=== PATIENT | female | born 1955 | race Caucasian/White ===

== ENCOUNTER 2016-08-19 12:16 | Emergency (ER) | payer OTHER ==
[~2016-08-19 12:16] MED LIST: ACYCLOVIR200 MG PO; ARMOUR THYROID15 MG; KLOR-CON M2020 MEQ PO; LAMICTAL100 MG PO; OMEPRAZOLE10 MG; PANTOPRAZOLE SO40 MG PO; XANAX1 MG; ZOFRAN ODT4 MG PO
--- NOTE | 2016-08-19 15:34 | DIAGNOSTIC IMAGING REPORT ---
PROCEDURE: ABDOMEN/PELVIS WITH CONTRAST CLINICAL INDICATION: ABDOMINAL PAIN, left-sided and low abdominal. TECHNIQUE: 125 ml of Isovue 300 were injected intravenously and axial images were obtained of the abdomen and pelvis with sagittal and coronal reformations. COMPARISON: 05/06/2016 FINDINGS: ABDOMEN: Mild bibasilar posterior atelectasis. Mild to moderate hiatal hernia. Surgical staple line around the gastric cardia. The rest of the stomach appears normal. Normal heart size. Two sub-centimeter hepatic cysts. Normal gallbladder. The adrenal glands, kidneys, pancreas and spleen are normal. The abdominal aorta is normal in its course and caliber. No atherosclerosis. There are no suspicious calcifications, retroperitoneal adenopathy or masses. The upper bowel loops, and mesentery are normal. Mild wall thickening and edema involving the terminal ileum and proximal colon. Diffuse wall edema throughout the decompressed, spasm and transverse colon through the splenic flexure. The descending colon is also decompressed with wall edema and mild diverticulosis. There is moderate diverticulosis in the sigmoid colon. No focal pericolonic inflammation. PELVIS: The appendix and pelvic small bowel loops are normal. The left ovary is reportedly surgically absent. No left adnexal mass. The uterus, right ovary urinary bladder, and pelvic vessels are normal. No adenopathy, free fluid, or pelvic mass. Asymmetric degenerative disc endplate changes along the right at the L4-5 level. Pars defects at L5 resulting in grade 1 anterolisthesis. IMPRESSION: 1. Descending and sigmoid colon diverticulosis without diverticulitis. 2. Mural edema and colonic spasm involving the proximal and transverse colon. Mural edema of the terminal ileum as well. This may be reactive or could be early infectious colitis/enterocolitis. Inflammatory colitis, given appearance of terminal ileum, should not be excluded. Correlate clinically. 3. Surgical changes of left oophorectomy and gastric surgery. 4. Small to moderate-sized hiatal hernia. 5. Discussed with Dr. Cleveland. All CT scans at this facility use dose modulation, iterative reconstruction, and/or weight-based dosing when appropriate to reduce radiation dose to as low as reasonably achievable.
--- NOTE | 2016-08-19 16:42 | ED NURSING NOTES ---
Clinical Report - Nurses [facility] [address] [place] [address] 08/19/2016 12:17 [id number] Triage time 12:23 Aug 19 2016. Acuity: LEVEL 3. Chief Complaint: ABDOMINAL PAIN, NAUSEA, VOMITING and DIARRHEA. MARY COMA SCORE: [place] Coma Scale: 15- eyes open spontaneously (4); best verbal response- oriented x 4 (5); best motor response- obeys commands (6). --12:40 Breanna Donovan R.N. 12:30 08/19/16. BP: 118/72. HR: 86. RR: 18. O2 saturation: 99%. Temp: 98.8 F. Pain level now 9/10. --19:19 Breanna Donovan R.N. Weight: 65.7 kg. Height/Length: 67 inches. BMI: 22.7. --12:22 Breanna Donovan R.N. Medications Acyclovir Oral. Lamictal Oral 400mg, daily. Omeprazole Oral. Thyroid Hormone. Xanax Oral. --12:24 Breanna Donovan R.N. Allergies Penicillins. Sulfa Drugs. Tape. --12:24 Breanna Donovan R.N. History Arrived by private vehicle. Historian: patient. Accompanied by family. This started last night. She has had nausea, vomiting, diarrhea and abdominal pain. Last oral intake by patient was (1000). SOCIAL HX: Never smoker. Occasional alcohol use. History of drug use: marijuana. No recent travel. No known contact with a sick individual. FALL RISK ASSESSMENT: Fall risk assessment completed. No fall risk identified. NUTRITIONAL RISK ASSESSMENT: The nutritional risk assessment revealed no deficiencies. FUNCTIONAL ASSESSMENT: Functional assessment: no impairments noted. LEARNING NEEDS ASSESSMENT: The learning needs assessment revealed no barriers. ABUSE ASSESSMENT: Abuse assessment: (yes) The patient was asked "Do you feel safe in your home?". SKIN INTEGRITY ASSESSMENT: Skin integrity risk assessment completed. No skin integrity risk identified. --12:40 Breanna Donovan R.N. PROBLEMS: Leukocytosis. Hypokalemia. GI Bleeding. Gastroesophageal Reflux Disease. Anxiety Reaction. Herpes. Pancreatitis. --12:24 Breanna Donovan R.N. ADDITIONAL SURGERIES: Fundoplification. Sinus sx. --12:24 Breanna Donovan R.N. Interventions ID and allergy band on patient. --12:40 Breanna Donovan R.N. NURSING PROGRESS NOTES 12:39 08/19/2016 Site #1 started via IV in the right wrist with an 20g angiocath, with aseptic technique and good blood return; one attempt. Blood drawn: rainbow set. Labeled in the presence of the patient and sent to the lab. Saline lock flushed with 10 mL saline. --12:54 Breanna Donovan R.N. 12:44 08/19/2016 Started bag #1 1000 mL IV Fluids IV NS (Saline); at 1000 mL/hr over 1 hour(s) via site #1 via dial-a-flow. Allergies verified and confirmed 5 rights. IV patency established. IV site checked: no pain, redness, or swelling. IV flushed thoroughly pre- and post-medication administration. --12:54 Breanna Donovan R.N. 12:45 08/19/2016 Zofran (Ondansetron HCl) IVP 4 mg given over 1 minute(s) via site #1. Allergies verified and confirmed 5 rights. IV patency established. IV site checked: no pain, redness, or swelling. IV flushed thoroughly pre- and post-medication administration. --12:55 Breanna Donovan R.N. 12:49 08/19/2016 Dilaudid (HYDROmorphone HCl PF) IVP 1 mg given over 2 minute(s) via site #1. Allergies verified, confirmed 5 rights and sedative warning given to the patient. IV patency established. IV site checked: no pain, redness, or swelling. IV flushed thoroughly pre- and post-medication administration. --12:54 Breanna Donovan R.N. 13:10 08/19/2016 Zofran (Ondansetron HCl) IVP 4 mg given over 2 minute(s) via site #1. Allergies verified and confirmed 5 rights. IV patency established. IV site checked: no pain, redness, or swelling. IV flushed thoroughly pre- and post-medication administration. IVP given by RN. --13:20 Jareth Ibarra R.N. 13:30 08/19/2016 IV Fluids IV NS Discontinued: bag #1 infused. Total amount infused: 1000 mL. IV patency established. IV site checked: no pain, redness, or swelling. IV flushed thoroughly. --13:31 Jareth Ibarra R.N. 13:31 08/19/2016 Started bag #1 1000 mL IV Fluids IV#2 NS (Saline); at 500 mL/hr over 2 hour(s) via site #1 via IV pump. Allergies verified and confirmed 5 rights. IV patency established. IV site checked: no pain, redness, or swelling. IV flushed thoroughly pre- and post-medication administration. --13:31 Jareth Ibarra R.N. 13:32 08/19/2016 Dilaudid (HYDROmorphone HCl PF) IVP 1 mg given over 2 minute(s) via site #1. Allergies verified, confirmed 5 rights and sedative warning given. IV patency established. IV site checked: no pain, redness, or swelling. IV flushed thoroughly pre- and post-medication administration. IVP given by RN. --13:32 Jareth Ibarra R.N. 14:36 08/19/2016 PHENERGAN (Promethazine HCl) IVP 6.25 mg given over 5 minute(s) via site #1. Allergies verified and confirmed 5 rights. IV patency established. IV site checked: no pain, redness, or swelling. IV flushed thoroughly pre- and post-medication administration. --14:36 Breanna Donovan R.N. 16:32 08/19/16. Document Review Attorney provided for the general and rectal exam by the physician. --16:32 Dulce Ribeiro R.N. 19:17 08/19/2016 IV Fluids IV#2 NS Discontinued: bag #2 infused. Total amount infused: 1000 mL. IV patency established. IV site checked: no pain, redness, or swelling. IV flushed thoroughly. --19:18 Breanna Donovan R.N. 19:10 08/19/16. BP: 122/72. HR: 87. RR: 18. O2 saturation: 99%. Temp: 98.4 F. Pain level now 0/10. --19:18 Breanna Donovan R.N. DISPOSITION / DISCHARGE 18:00 08/19/2016 Site #1 removed upon discharge. Catheter intact. Pressure dressing applied. --19:10 Breanna Donovan R.N. Departure time: 19:11 Aug 19 2016. Condition at departure: improved. No learning barriers present. Discharge instructions provided and reviewed with the patient. Reviewed warnings. Reviewed medication(s). Treatments reviewed. Reviewed referrals. Patient verbalized understanding. Written instructions provided in [place]. The patient was discharged home and accompanied by range ecologist. She left the Emergency Department ambulatory and via private vehicle. Referral Management Liaison driving. --19:11 Breanna Donovan R.N. 19:10 08/19/16. BP: 122/72. HR: 87. RR: 18. O2 saturation: 99%. Temp: 98.4 F. Pain level now 0/10. --19:11 Breanna Donovan R.N. Locked/Released at 08/20/2016 19:19 by Breanna Donovan R.N.
--- NOTE | 2016-08-19 16:42 | ED CLINICAL REPORT ---
Clinical Report - Physicians/Mid Levels [facility] [address] [place] [address] 08/19/2016 12:17 Patient: BELEN BRAVO Time Seen: 12:23. Arrived- By private vehicle. Historian- patient and family. HISTORY OF PRESENT ILLNESS Chief Complaint: ABDOMINAL PAIN. It is described as located in the suprapubic area and in the left abdomen and left lower quadrant. This started Mild last night, severe at 0400 and is still present. It was abrupt in onset. At its maximum, severity described as severe. When seen in the E.D., severity described as severe. Modifying factors- worsened by movement. The patient has had nausea and severe vomiting. She has had mild diarrhea (3 times). Similar symptoms previously: Several times. Recent medical care: ( Pt has has significant episodes of abdominal pain but has not had frequent CT scans.). REVIEW OF SYSTEMS The patient has had black stools, abdominal pain, diarrhea, nausea and vomiting. No fever, eye irritation, ear pain, sore throat or chest pain. No cough, difficulty breathing, black stools or constipation. No urinary frequency or urinary problems, back pain, skin rash or headache. No difficulty with urination. PAST HISTORY PCP: [facility] colonoscopy PAST HISTORY Anxiety Reaction. Herpes. Pancreatitis. No H/O ulcer SURGERIES: Fundoplification. Sinus sx. SOCIAL HISTORY Never smoker. ADDITIONAL NOTES The nursing notes have been reviewed. PHYSICAL EXAM Appearance: Alert. No acute distress. Eyes: Eyes normal inspection. No conjunctival findings or scleral icterus. ENT: Pharynx normal. CVS: Normal heart rate and rhythm. Heart sounds normal. Respiratory: No respiratory distress. Breath sounds normal. Abdomen: Moderate tenderness in the left upper quadrant, left side of the abdomen and left lower quadrant. Mild guarding present. Mild rebound tenderness in the left side of the abdomen and left lower quadrant. No mass. Back: No CVA tenderness. Skin: Skin warm. Normal skin color. Extremities: Extremities exhibit normal ROM. No lower extremity edema. LABS, X-RAYS, AND EKG Abdominal CT: IMPRESSION: 1. Descending and sigmoid colon diverticulosis without diverticulitis. 2. Mural edema and colonic spasm involving the proximal and transverse colon. Mural edema of the terminal ileum as well. This may be reactive or could be early infectious colitis/enterocolitis. Inflammatory colitis, given appearance of terminal ileum, should not be excluded. Correlate clinically. 3. Surgical changes of left oophorectomy and gastric surgery. 4. Small to moderate-sized hiatal hernia. 5. Discussed with Dr. Cleveland. Electronically Final signed by:Gisele Hodgson MD 08/19/2016 3:34:05 PM. The study was interpreted by the radiologist and discussed with the radiologist. Laboratory Tests: UA-Culture if indicated: (LILIAN: 08/19/2016 14:15) ( MsgRcvd 08/19/2016 14:42) Final results Test Result Flag Units (Reference) URINE COLOR YELLOW URINE APPEARANCE CLEAR URINE GLUCOSE NEGATIVE (NEGATIVE) URINE BILIRUBIN NEGATIVE (NEGATIVE) URINE KETONE 3+ (NEGATIVE) URINE SPECIFIC GRAVITY 1.020 (1.010-1.030) URINE PH 6.5 (5.0-8.0) URINE PROTEIN NEGATIVE (NEGATIVE) URINE UROBILINOGEN 0.2 EU/dL (0.2-1.0) URINE NITRITE NEGATIVE (NEGATIVE) URINE BLOOD TRACE-LYSED (NEGATIVE) URINE LEUK ESTERASE NEGATIVE (NEGATIVE) URINE RBC 3-5 rbc/hpf (0-1) URINE WBC 0-1 wbc/hpf (0-1) URINE EPITHELIAL CELLS 0-1 EPI/hpf (0-5) URINE BACTERIA FEW (1+) (NONE SEEN) URINE COMMENT CULT NOT INDICATED 1+ MUCOUSURINE CULTURES ARE SET-UP BASED ON THE FOLLOWING CRITERIA:POSITIVE NITRITEPOSITIVE LEUKOCYTE ESTERASEGREATER THAN 10 WHITE BLOOD CELLSMODERATE (2+) OR GREATER BACTERIA CBC w Diff: (LILIAN: 08/19/2016 12:20) ( MsgRcvd 08/19/2016 13:07) Final results Test Result Flag Units (Reference) WHITE BLOOD COUNT 14.1 H K/uL (4.5-11.5) RED BLOOD COUNT 5.33 H M/uL (4.00-5.20) HEMOGLOBIN 16.1 H gm/dL (12.0-16.0) HEMATOCRIT 47.7 H % (36.0-46.0) MEAN CELL VOLUME 89 fL (80-100) MEAN CORPUSCULAR HGB 30 pg (26-34) MEAN CORPUSCULAR HGB CONC 34 g/dL (31-37) RED CELL DISTRIBUTION WIDTH 13.0 % (11.6-14.8) PLATELET COUNT 298 K/uL (150-400) NEUTROPHIL % 88.1 H % (50-75) LYMPH % 8.1 L % (25-40) MONO % 3.4 % (3-14) EOSINOPHIL % 0.1 % (0-4) BASOPHIL % 0.3 % (0-2) CMP: (LILIAN: 08/19/2016 12:20) ( MsgRcvd 08/19/2016 13:16) Final results Test Result Flag Units (Reference) GLUCOSE 167 H mg/dL (70-110) BUN 13 mg/dL (7-18) CREATININE 0.7 mg/dL (0.6-1.3) Estimated GFR >60 mL/min Estimated GFR- >60 mL/min Note: Persistent reduction over 3 months in eGFR<60 mL/min/1.73 m2 defines CKD. Patients with eGFR values>=60 mL/min/1.73 m2 may also have CKD if evidence ofpersistent proteinuria. Additional information may be foundat [email or web address].org. SODIUM 140 mmol/L (136-145) POTASSIUM 3.2 L mmol/L (3.5-5.1) CHLORIDE 103 mmol/L (98-107) CARBON DIOXIDE 23 mmol/L (21-32) CALCIUM 9.9 mg/dL (8.5-10.1) TOTAL PROTEIN 7.6 g/dL (6.4-8.2) ALBUMIN 4.7 g/dL (3.3-5.0) BILIRUBIN, TOTAL 0.8 mg/dL (0.0-1.0) ALKALINE PHOSPHATASE 88 U/L (46-116) AST (SGOT) 22 U/L (15-37) ALT (SGPT) 31 U/L (12-78) LIPASE 41 L U/L (73-393) . PROGRESS AND PROCEDURES Course of Care: 14:43 08/19/16. Nausea finally better after Phenergan. Zofran was not effective. Pain improved by Dilaudid 1+[address] ordered because of exam and labs. Chief concern is diverticulitis with complications. At discharge pain relief and relief of nausea is excellent. The CT shows colon inflammation. She might have inflammatory bowel disease. At this time she does not have a surgical abdomen. Her PCP can decide if colonoscopy is warranted. Disposition: Discharged. Condition: good. CLINICAL IMPRESSION Abdominal pain of unknown cause. INSTRUCTIONS (IF YOU HAVE HAD PANCREATITIS YOU SHOULD DRINK NOT ALCOHOL EVER THAT CAN CAUSE PANCREATITIS. YOUR CT SHOWED MILD DIFFUSE COLON INFLAMMATION. THERE WAS NO DIVERTICULITIS AND NO PANCRATITIS OR APPENDICITIS. YOU MAY HAVE INFLAMMATORY BOWEL DISEASE. RECHECK IN ED IN 12-24 HOURS IF NOT BETTER. SEE YOUR DR FOR SURE NEXT WEEK. IT IS POSSIBLE THIS MIGHT BE INFLAMMATORY BOWEL DISEASE.). Prescription Medications: Oxycodone/APAP 5 mg/325 mg: take 1-2 tablets orally every 4 hours as needed for pain. Dispense fifteen (15). No refill. Phenergan 25 mg tablets: Take 1 tablet orally every 6 hours as needed for nausea and vomiting. Dispense fifteen (15). No refills. Substitution is permissible. (Electronically signed by Jimmy Cleveland MD 08/20/2016 22:17)
--- NOTE | 2016-08-19 16:42 | ED NURSING NOTES ---
Clinical Report - Nurses [facility] [address] [place] [address] 08/19/2016 12:17 [id number] Triage time 12:23 Aug 19 2016. Acuity: LEVEL 3. Chief Complaint: ABDOMINAL PAIN, NAUSEA, VOMITING and DIARRHEA. MARY COMA SCORE: [place] Coma Scale: 15- eyes open spontaneously (4); best verbal response- oriented x 4 (5); best motor response- obeys commands (6). --12:40 Breanna Donovan R.N. 12:30 08/19/16. BP: 118/72. HR: 86. RR: 18. O2 saturation: 99%. Temp: 98.8 F. Pain level now 9/10. --19:19 Breanna Donovan R.N. Weight: 65.7 kg. Height/Length: 67 inches. BMI: 22.7. --12:22 Breanna Donovan R.N. Medications Acyclovir Oral. Lamictal Oral 400mg, daily. Omeprazole Oral. Thyroid Hormone. Xanax Oral. --12:24 Breanna Donovan R.N. Allergies Penicillins. Sulfa Drugs. Tape. --12:24 Breanna Donovan R.N. History Arrived by private vehicle. Historian: patient. Accompanied by family. This started last night. She has had nausea, vomiting, diarrhea and abdominal pain. Last oral intake by patient was (1000). SOCIAL HX: Never smoker. Occasional alcohol use. History of drug use: marijuana. No recent travel. No known contact with a sick individual. FALL RISK ASSESSMENT: Fall risk assessment completed. No fall risk identified. NUTRITIONAL RISK ASSESSMENT: The nutritional risk assessment revealed no deficiencies. FUNCTIONAL ASSESSMENT: Functional assessment: no impairments noted. LEARNING NEEDS ASSESSMENT: The learning needs assessment revealed no barriers. ABUSE ASSESSMENT: Abuse assessment: (yes) The patient was asked "Do you feel safe in your home?". SKIN INTEGRITY ASSESSMENT: Skin integrity risk assessment completed. No skin integrity risk identified. --12:40 Breanna Donovan R.N. PROBLEMS: Leukocytosis. Hypokalemia. GI Bleeding. Gastroesophageal Reflux Disease. Anxiety Reaction. Herpes. Pancreatitis. --12:24 Breanna Donovan R.N. ADDITIONAL SURGERIES: Fundoplification. Sinus sx. --12:24 Breanna Donovan R.N. Interventions ID and allergy band on patient. --12:40 Breanna Donovan R.N. NURSING PROGRESS NOTES 12:39 08/19/2016 Site #1 started via IV in the right wrist with an 20g angiocath, with aseptic technique and good blood return; one attempt. Blood drawn: rainbow set. Labeled in the presence of the patient and sent to the lab. Saline lock flushed with 10 mL saline. --12:54 Breanna Donovan R.N. 12:44 08/19/2016 Started bag #1 1000 mL IV Fluids IV NS (Saline); at 1000 mL/hr over 1 hour(s) via site #1 via dial-a-flow. Allergies verified and confirmed 5 rights. IV patency established. IV site checked: no pain, redness, or swelling. IV flushed thoroughly pre- and post-medication administration. --12:54 Breanna Donovan R.N. 12:45 08/19/2016 Zofran (Ondansetron HCl) IVP 4 mg given over 1 minute(s) via site #1. Allergies verified and confirmed 5 rights. IV patency established. IV site checked: no pain, redness, or swelling. IV flushed thoroughly pre- and post-medication administration. --12:55 Breanna Donovan R.N. 12:49 08/19/2016 Dilaudid (HYDROmorphone HCl PF) IVP 1 mg given over 2 minute(s) via site #1. Allergies verified, confirmed 5 rights and sedative warning given to the patient. IV patency established. IV site checked: no pain, redness, or swelling. IV flushed thoroughly pre- and post-medication administration. --12:54 Breanna Donovan R.N. 13:10 08/19/2016 Zofran (Ondansetron HCl) IVP 4 mg given over 2 minute(s) via site #1. Allergies verified and confirmed 5 rights. IV patency established. IV site checked: no pain, redness, or swelling. IV flushed thoroughly pre- and post-medication administration. IVP given by RN. --13:20 Jareth Ibarra R.N. 13:30 08/19/2016 IV Fluids IV NS Discontinued: bag #1 infused. Total amount infused: 1000 mL. IV patency established. IV site checked: no pain, redness, or swelling. IV flushed thoroughly. --13:31 Jareth Ibarra R.N. 13:31 08/19/2016 Started bag #1 1000 mL IV Fluids IV#2 NS (Saline); at 500 mL/hr over 2 hour(s) via site #1 via IV pump. Allergies verified and confirmed 5 rights. IV patency established. IV site checked: no pain, redness, or swelling. IV flushed thoroughly pre- and post-medication administration. --13:31 Jareth Ibarra R.N. 13:32 08/19/2016 Dilaudid (HYDROmorphone HCl PF) IVP 1 mg given over 2 minute(s) via site #1. Allergies verified, confirmed 5 rights and sedative warning given. IV patency established. IV site checked: no pain, redness, or swelling. IV flushed thoroughly pre- and post-medication administration. IVP given by RN. --13:32 Jareth Ibarra R.N. 14:36 08/19/2016 PHENERGAN (Promethazine HCl) IVP 6.25 mg given over 5 minute(s) via site #1. Allergies verified and confirmed 5 rights. IV patency established. IV site checked: no pain, redness, or swelling. IV flushed thoroughly pre- and post-medication administration. --14:36 Breanna Donovan R.N. 16:32 08/19/16. Plaster Machine Tender provided for the general and rectal exam by the physician. --16:32 Dulce Ribeiro R.N. 19:17 08/19/2016 IV Fluids IV#2 NS Discontinued: bag #2 infused. Total amount infused: 1000 mL. IV patency established. IV site checked: no pain, redness, or swelling. IV flushed thoroughly. --19:18 Breanna Donovan R.N. 19:10 08/19/16. BP: 122/72. HR: 87. RR: 18. O2 saturation: 99%. Temp: 98.4 F. Pain level now 0/10. --19:18 Breanna Donovan R.N. DISPOSITION / DISCHARGE 18:00 08/19/2016 Site #1 removed upon discharge. Catheter intact. Pressure dressing applied. --19:10 Breanna Donovan R.N. Departure time: 19:11 Aug 19 2016. Condition at departure: improved. No learning barriers present. Discharge instructions provided and reviewed with the patient. Reviewed warnings. Reviewed medication(s). Treatments reviewed. Reviewed referrals. Patient verbalized understanding. Written instructions provided in Greek. The patient was discharged home and accompanied by facetor. She left the Emergency Department ambulatory and via private vehicle. Patient Office Rep driving. --19:11 Breanna Donovan R.N. 19:10 08/19/16. BP: 122/72. HR: 87. RR: 18. O2 saturation: 99%. Temp: 98.4 F. Pain level now 0/10. --19:11 Breanna Donovan R.N. Locked/Released at 08/20/2016 19:19 by Breanna Donovan R.N.
--- NOTE | 2016-08-19 16:42 | ED ORDER SUMMARY ---
..... Patient: BELEN BRAVO OrderSheet [facility] VisitID: [id number] [address] [place] [address] 60y, F Registration Date/Time: 08/19/2016 ORDER SHEET Weight: 65.7 kg Allergies: Penicillins, Sulfa Drugs, Tape GENERAL ORDERS: CBC w Diff Urgent (12:32 08/19/2016 Guilherme SETH) (Ack 12:33 Larissa) (12:53 LWhalen R.N.) CMP Urgent (12:32 08/19/2016 Guilherme SETH) (Ack 12:33 Larissa) (12:53 LWhalen R.N.) UA-Culture if indicated Urgent (12:32 08/19/2016 Guilherme SETH) (Ack 12:33 Larissa) (14:17 LWhalen R.N.) Lipase Urgent (12:32 08/19/2016 Guilherme SETH) (Ack 12:33 Larissa) (12:53 LWhalen R.N.) CT Abd/Pel w Cont (No) (PERCHART) Urgent (14:15 08/19/2016 Guilherme SETH) (Ack 14:21 Larissa) (18:31 Domenico) MEDICATION ORDERS: Phenergan IV 6.25 (NOW) (14:22 08/19/2016 Guilherme SETH) (14:36 LWhalen R.N.) IV FLUIDS: IV NS : initial bolus none -, then 500 mL/hr for 2h (NOW); Urgent (12:31 08/19/2016 Guilherme SETH) (12:54 LWhalen R.N.) Dilaudid IV 1 mg + 1 mg IV (NOW) (12:35 08/19/2016 Guilherme SETH) (12:54 LWhalmariya R.N.) Zofran IV 4 mg (NOW) (12:35 08/19/2016 Guilherme SETH) (12:55 LWhalmariya R.N.) Zofran IV 4 mg (NOW) (13:17 08/19/2016 Gomez R.N. verbal order read back to Guilherme SETH) (13:20 Gomez R.N.) IV#2 NS : initial bolus none -, then 500 mL/hr (NOW) (13:19 08/19/2016 Gomez Vargas verbal order read back to Guilherme SETH) (13:31 Gomez Vargas) ORDER SHEET NOTES: [Electronically signed by Breanna Donovan R.N. (19:19 08/20/2016)] [Electronically signed by Jimmy Cleveland MD (22:17 08/20/2016)] [Electronically locked/signed by Breanna Donovan R.N. (19:19 08/20/2016)]
--- NOTE | 2016-08-19 16:42 | ED ORDER SUMMARY ---
..... Patient: BELEN BRAVO OrderSheet [facility] VisitID: [id number] [address] [place] [address] 60y, F Registration Date/Time: 08/19/2016 ORDER SHEET Weight: 65.7 kg Allergies: Penicillins, Sulfa Drugs, Tape GENERAL ORDERS: CBC w Diff Urgent (12:32 08/19/2016 Guilherme SETH) (Ack 12:33 Larissa) (12:53 LWhalen R.N.) CMP Urgent (12:32 08/19/2016 Guilherme SETH) (Ack 12:33 Larissa) (12:53 LWhalen R.N.) UA-Culture if indicated Urgent (12:32 08/19/2016 Guilherme SETH) (Ack 12:33 Larissa) (14:17 LWhalen R.N.) Lipase Urgent (12:32 08/19/2016 Guilherme SETH) (Ack 12:33 Larissa) (12:53 LWhalen R.N.) CT Abd/Pel w Cont (No) (PERCHART) Urgent (14:15 08/19/2016 Guilherme SETH) (Ack 14:21 Larissa) (18:31 Domenico) MEDICATION ORDERS: Phenergan IV 6.25 (NOW) (14:22 08/19/2016 Guilherme SETH) (14:36 LWhalen R.N.) IV FLUIDS: IV NS : initial bolus none -, then 500 mL/hr for 2h (NOW); Urgent (12:31 08/19/2016 Guilherme SETH) (12:54 LWhalen R.N.) Dilaudid IV 1 mg + 1 mg IV (NOW) (12:35 08/19/2016 Guilherme SETH) (12:54 LWhalmariya R.N.) Zofran IV 4 mg (NOW) (12:35 08/19/2016 Guilherme SETH) (12:55 LWhalmariya R.N.) Zofran IV 4 mg (NOW) (13:17 08/19/2016 Gomez R.N. verbal order read back to Guilherme SETH) (13:20 Gomez R.N.) IV#2 NS : initial bolus none -, then 500 mL/hr (NOW) (13:19 08/19/2016 Gomez Vargas verbal order read back to Guilherme SETH) (13:31 Gomez Vargas) ORDER SHEET NOTES: [Electronically signed by Breanna Donovan R.N. (19:19 08/20/2016)] [Electronically signed by Jimmy Cleveland MD (22:17 08/20/2016)] [Electronically locked/signed by Breanna Donovan R.N. (19:19 08/20/2016)]
--- NOTE | 2016-08-20 22:17 | ED MED RECONCILIATION SUMMARY ---
Patient: BELEN BRAVO Medication Reconciliation Report [facility] VisitID: [id number] [address] [place] [address] 60y, F Registration Date/Time: 08/19/2016 Weight: 65.7 kg Height/Length: 67 in. BMI: 22.7 ALLERGIES: Penicillins, Sulfa Drugs, Tape The patient's Home Medications are listed below: THE FOLLOWING MEDICATIONS NEED TO BE RECONCILED: Acyclovir Oral Lamictal Oral 400mg, daily Omeprazole Oral Thyroid Hormone Xanax Oral The source(s) of the original Home Medication information: Not obtained. The following Medications were given to the patient in the Emergency Department: IV NS IV Fluids bolus 0, then 1000 mL/hr, administered: 08/19/2016 12:44:00 PM Dilaudid [IVP] IVP 1 mg, administered: 08/19/2016 12:49:00 PM Zofran [IVP] IVP 4 mg, administered: 08/19/2016 12:45:00 PM Zofran [IVP] IVP 4 mg, administered: 08/19/2016 1:10:00 PM IV#2 NS IV Fluids bolus 0, then 500 mL/hr, administered: 08/19/2016 1:31:00 PM Dilaudid [IVP] IVP 1 mg, administered: 08/19/2016 1:32:00 PM PHENERGAN [IVP] IVP 6.25 mg, administered: 08/19/2016 2:36:00 PM The following Medications were prescribed to the patient: Oxycodone/APAP 5 mg/325 mg: take 1-2 tablets orally every 4 hours as needed for pain. Dispense fifteen (15). No refill. -- Jimmy Cleveland MD Phenergan 25 mg tablets: Take 1 tablet orally every 6 hours as needed for nausea and vomiting. Dispense fifteen (15). No refills. Substitution is permissible. -- Jimmy Cleveland MD
--- NOTE | 2016-08-20 22:17 | ED MAR SUMMARY ---
..... Medication Administration Record [facility] [address] [place] [address] Patient: BELEN BRAVO Visit ID: [id number] 60y, F Weight: 65.7 kg Height/Length: 67 in BMI: 22.7 ALLERGIES: Penicillins, Sulfa Drugs, Tape Start 12:44 08/19/2016 Breanna Donovan R.N., Stop 13:30 08/19/2016 Jareth Ibarra R.N. Medication Administered: IV NS (SALINE), Dose: IV Fluids over 1 hour(s), Rate: 1000 mL/hr, Dispensed: 1000 mL bag, Site: #1 right wrist. Medication Ordered: IV NS : initial bolus none -, then 500 mL/hr for 2h (NOW); Urgent. Given 12:45 08/19/2016 Breanna Donovan R.N. Medication Administered: ZOFRAN [IVP] (ONDANSETRON HCL), Dose: 4 mg IVP over 1 minute(s), Site: #1 right wrist. Medication Ordered: Zofran IV 4 mg (NOW). Given 12:49 08/19/2016 Breanna Donovan R.N. Medication Administered: DILAUDID [IVP] (HYDROMORPHONE HCL PF), Dose: 1 mg IVP over 2 minute(s), Site: #1 right wrist. Medication Ordered: Dilaudid IV 1 mg + 1 mg IV (NOW). Given 13:10 08/19/2016 Jareth Ibarra R.N. Medication Administered: ZOFRAN [IVP] (ONDANSETRON HCL), Dose: 4 mg IVP over 2 minute(s), Site: #1 right wrist. Medication Ordered: Zofran IV 4 mg (NOW). Start 13:31 08/19/2016 Jareth Ibarra R.N., Stop 19:17 08/19/2016 Breanna Donovan R.N. Medication Administered: IV#2 NS (SALINE), Dose: IV Fluids over 2 hour(s), Rate: 500 mL/hr, Dispensed: 1000 mL bag, Site: #1 right wrist. Medication Ordered: IV#2 NS : initial bolus none -, then 500 mL/hr (NOW). Given 13:32 08/19/2016 Jareth Ibarra, RSotoN. Medication Administered: DILAUDID [IVP] (HYDROMORPHONE HCL PF), Dose: 1 mg IVP over 2 minute(s), Site: #1 right wrist. Medication Ordered: Dilaudid IV 1 mg + 1 mg IV (NOW). Given 14:36 08/19/2016 Breanna Donovan RSotoN. Medication Administered: PHENERGAN [IVP] (PROMETHAZINE HCL), Dose: 6.25 mg IVP over 5 minute(s), Site: #1 right wrist. Medication Ordered: Phenergan IV 6.25 (NOW).
--- NOTE | 2016-08-20 22:17 | ED DISCHARGE INSTRUCTIONS ---
Patient: BELEN BRAVO General Instructions [facility] VisitID: [id number] [place] [address] 60y, F Registration Date/Time: 08/19/2016 Abdominal pain of unknown cause. INSTRUCTIONS (IF YOU HAVE HAD PANCREATITIS YOU SHOULD DRINK NOT ALCOHOL EVER THAT CAN CAUSE PANCREATITIS. YOUR CT SHOWED MILD DIFFUSE COLON INFLAMMATION. THERE WAS NO DIVERTICULITIS AND NO PANCRATITIS OR APPENDICITIS. YOU MAY HAVE INFLAMMATORY BOWEL DISEASE. RECHECK IN ED IN 12-24 HOURS IF NOT BETTER. SEE YOUR DR FOR SURE NEXT WEEK. IT IS POSSIBLE THIS MIGHT BE INFLAMMATORY BOWEL DISEASE.). Prescription Medications: Oxycodone/APAP 5 mg/325 mg: take 1-2 tablets orally every 4 hours as needed for pain. Dispense fifteen (15). No refill. Phenergan 25 mg tablets: Take 1 tablet orally every 6 hours as needed for nausea and vomiting. Dispense fifteen (15). No refills. Substitution is permissible. ADDITIONAL INFORMATION Oxycodone Hydrochloride, Acetaminophen Oral tablet What is this medicine? ACETAMINOPHEN; OXYCODONE (a set a JORGE litzy fen; ox i KOE done) is a pain reliever. It is used to treat mild to moderate pain. How should I use this medicine? Take this medicine by mouth with a full glass of water. Follow the directions on the prescription label. Take your medicine at regular intervals. Do not take your medicine more often than directed. Talk to your liquor store manager regarding the use of this medicine in children. Special care may be needed. Patients over 65 years old may have a stronger reaction and need a smaller dose. What side effects may I notice from receiving this medicine? Side effects that you should report to your doctor or health rn progressive care as soon as possible: allergic reactions like skin rash, itching or hives, swelling of the face, lips, or tongue breathing difficulties, wheezing confusion light headedness or fainting spells severe stomach pain yellowing of the skin or the whites of the eyes Side effects that usually do not require medical attention (report to your doctor or health rn progressive care if they continue or are bothersome): dizziness drowsiness nausea vomiting What may interact with this medicine? alcohol antihistamines barbiturates like amobarbital, butalbital, butabarbital, methohexital, pentobarbital, phenobarbital, thiopental, and secobarbital benztropine drugs for bladder problems like solifenacin, trospium, oxybutynin, tolterodine, hyoscyamine, and methscopolamine drugs for breathing problems like ipratropium and tiotropium drugs for certain stomach or intestine problems like propantheline, homatropine methylbromide, glycopyrrolate, atropine, belladonna, and dicyclomine general anesthetics like etomidate, ketamine, nitrous oxide, propofol, desflurane, enflurane, halothane, isoflurane, and sevoflurane medicines for depression, anxiety, or psychotic disturbances medicines for sleep muscle relaxants naltrexone narcotic medicines (opiates) for pain phenothiazines like perphenazine, thioridazine, chlorpromazine, mesoridazine, fluphenazine, prochlorperazine, promazine, and trifluoperazine scopolamine tramadol trihexyphenidyl What if I miss a dose? If you miss a dose, take it as soon as you can. If it is almost time for your next dose, take only that dose. Do not take double or extra doses. Where should I keep my medicine? Keep out of the reach of children. This medicine can be abused. Keep your medicine in a safe place to protect it from theft. Do not share this medicine with anyone. Selling or giving away this medicine is dangerous and against the law. Store at room temperature between 20 and 25 degrees C (68 and 77 degrees F). Keep container tightly closed. Protect from light. This medicine may cause accidental overdose and if it is taken by other adults, children, or pets. Flush any unused medicine down the toilet to reduce the chance of harm. Do not use the medicine after the expiration date. What should I tell my health care provider before I take this medicine? They need to know if you have any of these conditions: brain tumor Crohn's disease, inflammatory bowel disease, or ulcerative colitis drink more than 3 alcohol containing drinks per day drug abuse or addiction head injury heart or circulation problems kidney disease or problems going to the bathroom liver disease lung disease, asthma, or breathing problems an unusual or allergic reaction to acetaminophen, oxycodone, other opioid analgesics, other medicines, foods, dyes, or preservatives or trying to get breast-feeding What should I watch for while using this medicine? Tell your doctor or health rn progressive care if your pain does not go away, if it gets worse, or if you have new or a different type of pain. You may develop tolerance to the medicine. Tolerance means that you will need a higher dose of the medication for pain relief. Tolerance is normal and is expected if you take this medicine for a long time. Do not suddenly stop taking your medicine because you may develop a severe reaction. Your body becomes used to the medicine. This does NOT mean you are addicted. Addiction is a behavior related to getting and using a drug for a non-medical reason. If you have pain, you have a medical reason to take pain medicine. Your doctor will tell you how much medicine to take. If your doctor wants you to stop the medicine, the dose will be slowly lowered over time to avoid any side effects. You may get drowsy or dizzy. Do not drive, use machinery, or do anything that needs mental alertness until you know how this medicine affects you. Do not stand or sit up quickly, especially if you are an older patient. This reduces the risk of dizzy or fainting spells. Alcohol may interfere with the effect of this medicine. Avoid alcoholic drinks. There are different types of narcotic medicines (opiates) for pain. If you take more than one type at the same time, you may have more side effects. Give your health care provider a list of all medicines you use. Your doctor will tell you how much medicine to take. Do not take more medicine than directed. Call emergency for help if you have problems breathing. The medicine will cause constipation. Try to have a bowel movement at least every 2 to 3 days. If you do not have a bowel movement for 3 days, call your doctor or health rn progressive care. Do not take Tylenol (acetaminophen) or medicines that have acetaminophen with this medicine. Too much acetaminophen can be very dangerous. Many nonprescription medicines contain acetaminophen. Always read the labels carefully to avoid taking more acetaminophen. You have been given the following additional information: Oxycodone Hydrochloride, Acetaminophen Oral tablet (Electronically signed by Jimmy Cleveland MD 08/20/2016 22:17)
--- NOTE | 2016-08-20 22:17 | ED DISCHARGE INSTRUCTIONS ---
Patient: BELEN BRAVO General Instructions [facility] VisitID: [id number] [place] [address] 60y, F Registration Date/Time: 08/19/2016 Abdominal pain of unknown cause. INSTRUCTIONS (IF YOU HAVE HAD PANCREATITIS YOU SHOULD DRINK NOT ALCOHOL EVER THAT CAN CAUSE PANCREATITIS. YOUR CT SHOWED MILD DIFFUSE COLON INFLAMMATION. THERE WAS NO DIVERTICULITIS AND NO PANCRATITIS OR APPENDICITIS. YOU MAY HAVE INFLAMMATORY BOWEL DISEASE. RECHECK IN ED IN 12-24 HOURS IF NOT BETTER. SEE YOUR DR FOR SURE NEXT WEEK. IT IS POSSIBLE THIS MIGHT BE INFLAMMATORY BOWEL DISEASE.). Prescription Medications: Oxycodone/APAP 5 mg/325 mg: take 1-2 tablets orally every 4 hours as needed for pain. Dispense fifteen (15). No refill. Phenergan 25 mg tablets: Take 1 tablet orally every 6 hours as needed for nausea and vomiting. Dispense fifteen (15). No refills. Substitution is permissible. ADDITIONAL INFORMATION Oxycodone Hydrochloride, Acetaminophen Oral tablet What is this medicine? ACETAMINOPHEN; OXYCODONE (a set a JORGE litzy fen; ox i KOE done) is a pain reliever. It is used to treat mild to moderate pain. How should I use this medicine? Take this medicine by mouth with a full glass of water. Follow the directions on the prescription label. Take your medicine at regular intervals. Do not take your medicine more often than directed. Talk to your farm products shipper regarding the use of this medicine in children. Special care may be needed. Patients over 65 years old may have a stronger reaction and need a smaller dose. What side effects may I notice from receiving this medicine? Side effects that you should report to your doctor or health overnight caregiver as soon as possible: allergic reactions like skin rash, itching or hives, swelling of the face, lips, or tongue breathing difficulties, wheezing confusion light headedness or fainting spells severe stomach pain yellowing of the skin or the whites of the eyes Side effects that usually do not require medical attention (report to your doctor or health overnight caregiver if they continue or are bothersome): dizziness drowsiness nausea vomiting What may interact with this medicine? alcohol antihistamines barbiturates like amobarbital, butalbital, butabarbital, methohexital, pentobarbital, phenobarbital, thiopental, and secobarbital benztropine drugs for bladder problems like solifenacin, trospium, oxybutynin, tolterodine, hyoscyamine, and methscopolamine drugs for breathing problems like ipratropium and tiotropium drugs for certain stomach or intestine problems like propantheline, homatropine methylbromide, glycopyrrolate, atropine, belladonna, and dicyclomine general anesthetics like etomidate, ketamine, nitrous oxide, propofol, desflurane, enflurane, halothane, isoflurane, and sevoflurane medicines for depression, anxiety, or psychotic disturbances medicines for sleep muscle relaxants naltrexone narcotic medicines (opiates) for pain phenothiazines like perphenazine, thioridazine, chlorpromazine, mesoridazine, fluphenazine, prochlorperazine, promazine, and trifluoperazine scopolamine tramadol trihexyphenidyl What if I miss a dose? If you miss a dose, take it as soon as you can. If it is almost time for your next dose, take only that dose. Do not take double or extra doses. Where should I keep my medicine? Keep out of the reach of children. This medicine can be abused. Keep your medicine in a safe place to protect it from theft. Do not share this medicine with anyone. Selling or giving away this medicine is dangerous and against the law. Store at room temperature between 20 and 25 degrees C (68 and 77 degrees F). Keep container tightly closed. Protect from light. This medicine may cause accidental overdose and if it is taken by other adults, children, or pets. Flush any unused medicine down the toilet to reduce the chance of harm. Do not use the medicine after the expiration date. What should I tell my health care provider before I take this medicine? They need to know if you have any of these conditions: brain tumor Crohn's disease, inflammatory bowel disease, or ulcerative colitis drink more than 3 alcohol containing drinks per day drug abuse or addiction head injury heart or circulation problems kidney disease or problems going to the bathroom liver disease lung disease, asthma, or breathing problems an unusual or allergic reaction to acetaminophen, oxycodone, other opioid analgesics, other medicines, foods, dyes, or preservatives or trying to get breast-feeding What should I watch for while using this medicine? Tell your doctor or health overnight caregiver if your pain does not go away, if it gets worse, or if you have new or a different type of pain. You may develop tolerance to the medicine. Tolerance means that you will need a higher dose of the medication for pain relief. Tolerance is normal and is expected if you take this medicine for a long time. Do not suddenly stop taking your medicine because you may develop a severe reaction. Your body becomes used to the medicine. This does NOT mean you are addicted. Addiction is a behavior related to getting and using a drug for a non-medical reason. If you have pain, you have a medical reason to take pain medicine. Your doctor will tell you how much medicine to take. If your doctor wants you to stop the medicine, the dose will be slowly lowered over time to avoid any side effects. You may get drowsy or dizzy. Do not drive, use machinery, or do anything that needs mental alertness until you know how this medicine affects you. Do not stand or sit up quickly, especially if you are an older patient. This reduces the risk of dizzy or fainting spells. Alcohol may interfere with the effect of this medicine. Avoid alcoholic drinks. There are different types of narcotic medicines (opiates) for pain. If you take more than one type at the same time, you may have more side effects. Give your health care provider a list of all medicines you use. Your doctor will tell you how much medicine to take. Do not take more medicine than directed. Call emergency for help if you have problems breathing. The medicine will cause constipation. Try to have a bowel movement at least every 2 to 3 days. If you do not have a bowel movement for 3 days, call your doctor or health overnight caregiver. Do not take Tylenol (acetaminophen) or medicines that have acetaminophen with this medicine. Too much acetaminophen can be very dangerous. Many nonprescription medicines contain acetaminophen. Always read the labels carefully to avoid taking more acetaminophen. You have been given the following additional information: Oxycodone Hydrochloride, Acetaminophen Oral tablet (Electronically signed by Jimmy Cleveland MD 08/20/2016 22:17)
--- NOTE | 2016-08-20 22:17 | ED MED RECONCILIATION SUMMARY ---
Patient: BELEN BRAVO Medication Reconciliation Report [facility] VisitID: [id number] [address] [place] [address] 60y, F Registration Date/Time: 08/19/2016 Weight: 65.7 kg Height/Length: 67 in. BMI: 22.7 ALLERGIES: Penicillins, Sulfa Drugs, Tape The patient's Home Medications are listed below: THE FOLLOWING MEDICATIONS NEED TO BE RECONCILED: Acyclovir Oral Lamictal Oral 400mg, daily Omeprazole Oral Thyroid Hormone Xanax Oral The source(s) of the original Home Medication information: Not obtained. The following Medications were given to the patient in the Emergency Department: IV NS IV Fluids bolus 0, then 1000 mL/hr, administered: 08/19/2016 12:44:00 PM Dilaudid [IVP] IVP 1 mg, administered: 08/19/2016 12:49:00 PM Zofran [IVP] IVP 4 mg, administered: 08/19/2016 12:45:00 PM Zofran [IVP] IVP 4 mg, administered: 08/19/2016 1:10:00 PM IV#2 NS IV Fluids bolus 0, then 500 mL/hr, administered: 08/19/2016 1:31:00 PM Dilaudid [IVP] IVP 1 mg, administered: 08/19/2016 1:32:00 PM PHENERGAN [IVP] IVP 6.25 mg, administered: 08/19/2016 2:36:00 PM The following Medications were prescribed to the patient: Oxycodone/APAP 5 mg/325 mg: take 1-2 tablets orally every 4 hours as needed for pain. Dispense fifteen (15). No refill. -- Jimmy Cleveland MD Phenergan 25 mg tablets: Take 1 tablet orally every 6 hours as needed for nausea and vomiting. Dispense fifteen (15). No refills. Substitution is permissible. -- Jimmy Cleveland MD
--- NOTE | 2016-08-20 22:17 | ED MAR SUMMARY ---
..... Medication Administration Record [facility] [address] [place] [address] Patient: BELEN BRAVO Visit ID: [id number] 60y, F Weight: 65.7 kg Height/Length: 67 in BMI: 22.7 ALLERGIES: Penicillins, Sulfa Drugs, Tape Start 12:44 08/19/2016 Breanna Donovan R.N., Stop 13:30 08/19/2016 Jareth Ibarra R.N. Medication Administered: IV NS (SALINE), Dose: IV Fluids over 1 hour(s), Rate: 1000 mL/hr, Dispensed: 1000 mL bag, Site: #1 right wrist. Medication Ordered: IV NS : initial bolus none -, then 500 mL/hr for 2h (NOW); Urgent. Given 12:45 08/19/2016 Breanna Donovan R.N. Medication Administered: ZOFRAN [IVP] (ONDANSETRON HCL), Dose: 4 mg IVP over 1 minute(s), Site: #1 right wrist. Medication Ordered: Zofran IV 4 mg (NOW). Given 12:49 08/19/2016 Breanna Donovan R.N. Medication Administered: DILAUDID [IVP] (HYDROMORPHONE HCL PF), Dose: 1 mg IVP over 2 minute(s), Site: #1 right wrist. Medication Ordered: Dilaudid IV 1 mg + 1 mg IV (NOW). Given 13:10 08/19/2016 Jareth Ibarra R.N. Medication Administered: ZOFRAN [IVP] (ONDANSETRON HCL), Dose: 4 mg IVP over 2 minute(s), Site: #1 right wrist. Medication Ordered: Zofran IV 4 mg (NOW). Start 13:31 08/19/2016 Jareth Ibarra R.N., Stop 19:17 08/19/2016 Breanna Donovan R.N. Medication Administered: IV#2 NS (SALINE), Dose: IV Fluids over 2 hour(s), Rate: 500 mL/hr, Dispensed: 1000 mL bag, Site: #1 right wrist. Medication Ordered: IV#2 NS : initial bolus none -, then 500 mL/hr (NOW). Given 13:32 08/19/2016 Jareth Ibarra, RSotoN. Medication Administered: DILAUDID [IVP] (HYDROMORPHONE HCL PF), Dose: 1 mg IVP over 2 minute(s), Site: #1 right wrist. Medication Ordered: Dilaudid IV 1 mg + 1 mg IV (NOW). Given 14:36 08/19/2016 Breanna Donovan RSotoN. Medication Administered: PHENERGAN [IVP] (PROMETHAZINE HCL), Dose: 6.25 mg IVP over 5 minute(s), Site: #1 right wrist. Medication Ordered: Phenergan IV 6.25 (NOW).
== END 2016-08-19 18:00 | disposition home or self-care (01) ==
LOC: ED SRH 12:16
DX: R10.32 Left lower quadrant pain (principal); R10.12 Left upper quadrant pain
CPT/HCPCS: 90004; 90100; 92235; 95059